=== PATIENT | female | born 1965 | race Caucasian/White ===

== ENCOUNTER 2017-03-01 06:02 | Observation (INO) | payer MEDICAID, OTHER ==
[2017-02-28 11:21] VITALS: BMI 36.1
--- NOTE | 2017-02-28 21:27 | PREOPHP ---
DATE OF ADMISSION: 03/01/2017 REASON FOR ADMISSION: This 52-year-old patient is going to be admitted for diagnostic arthroscopy o f right shoulder, examination under general anesthesia, total synovectomy, SLAP and Bankart repair, plus acromioplasty of right shoulder. HISTORY OF PRESENT ILLNESS: This patient has been experiencing right shoulder pain for quite a whil e. Conservative treatment resulted in limited benefit to the patient. The patient has requested matias rgical intervention. PAST MEDICAL HISTORY: Asthma, COPD, coronary artery disease, and high blood pressure. SOCIAL HISTORY: Nonsmoker, nondrinker. ALLERGIES: ALLERGIC TO TYLENOL. MEDICATIONS: 1. Tramadol. 2. Hydrochlorothiazide. 3. Singulair. 4. Dulera. 5. Ventolin. 6. Robaxin. 7. Clinoril. 8. B6. 9. B12. 10. Folic acid. 11. D3. REVIEW OF SYSTEMS: Limited to present illness. PHYSICAL EXAMINATION: VITAL SIGNS: Height of 5 feet 9 inches, weighing 230 pounds. SKIN: Within normal limits. EYES: PERRLA. HEAD AND NECK: Normocephalic. Trachea midline. Bilateral symmetrical carotid pulses. No mass, no bruit, no lymphadenopathy. CARDIOVASCULAR: Normal sinus rhythm. S1, S2 normal. No murmur. No JVD. No peripheral edema. LUNGS: Clear. ABDOMEN: Soft, slightly protuberant. No organomegaly. No mass. Bowel sounds present. GENITOURINARY AND RECTAL: Not done, not pertinent to this admission. MUSCULOSKELETAL: The patient states that she used to be 400 pounds, now 230 pounds. Cervical spine is within normal limits. The shoulder, elbow, wrist, and hands are normal. The right shoulder has limited range of motion only to 50%. There is tenderness in the anterior glenohumeral joint, subac romial space. Positive impingement sign. Positive Dickey test. Decreased tenderness ____ symmetr ical to the other side. The spine is clear. Both lower extremities symmetrical and normal, except tenderness in the right and left iliotibial bands. Right leg is externally rotated. The right knee has limited range of motion to 15 degrees, no more. Slight valgus. Synovitis and tenderness in al l joints present. There is considerable amount of weakness in the hip flexor, 3/5. Also the flexor and extensor. There is decrease ____ and decreased tone and reflex. DIAGNOSES: 1. Iliotibial band syndrome. 2. Right greater trochanteric bursitis. 3. Right shoulder synovitis with right shoulder superior labral anterior-posterior lesion, possible Bankart lesion. 4. Radicular pain and weakness in the lower extremity. 5. Bilateral knee synovitis, internal derangement. PLAN: Treatment plan, alternatives, risks, and benefits discussed. The patient understands possibi lity of complications such as infection, bleeding, nerve damage, vascular damage, possibility of fabiano p venous thrombosis, pulmonary embolism, hypersensitivity from medication, and even . [facility] re sult may not be obtained depending on actual finding or known or unknown factor or factors. Formal H and P is supposed to be done by PCP. Dictated By: HEATHER CLARK/LEATHA Conf#: [id number] DID#: [id number]
[~2017-03-01] VITALS: Ht 170.2 cm; Wt 106.7 kg
[2017-03-01] VITALS (55 sets, daily range): BP systolic 110–212; BP diastolic 51–108; PULSE 61–96; RESP 16–26; Ht 170.2 cm; Wt 106.7 kg
[2017-03-01] MEDS ORDERED: OMEP20CA16 PO (06:57)
[2017-03-01] MEDS ORDERED: ALBU18HF INHALATION (06:57)
[2017-03-01] MEDS ORDERED: AMLO2.5T2 PO (06:57)
[2017-03-01] MEDS ORDERED: TIOT4MIS5 IH (06:57)
[2017-03-01] MEDS ORDERED: ALBU8.5H3 INH (06:57)
[2017-03-01] MEDS ORDERED: SULI150T39 PO (06:57)
[2017-03-01] MEDS ORDERED: ASPI81TA3 PO (06:57)
[2017-03-01] MEDS ORDERED: HYDR50TA3 PO (06:57)
[2017-03-01] MEDS ORDERED: MOME13HF2 INHALATION (06:57)
[2017-03-01] MEDS ORDERED: morphine SULFATE/PF (10 MG/10 ML) INJ ONE (06:58)
[2017-03-01] MEDS ORDERED: EPINEPHrine 1 MG/ML 30 ML INJ ONE (06:59)
[2017-03-01] MEDS ORDERED: CITRIC ACID/NA CITRATE 30 ML CUP ONE (07:24)
[2017-03-01] MEDS ORDERED: ROCURONIUM 50 MG INJ ONE (07:41)
[2017-03-01] MEDS ORDERED: GLYCOPYRROLATE 0.4 MG INJ ONE (07:41)
[2017-03-01] MEDS ORDERED: NEOSTIGMINE 3 MG/3 ML SYRINGE ONE (07:42)
[2017-03-01] MEDS ORDERED: CEFAZOLIN 1 GM INJ ONE (07:42)
[2017-03-01] MEDS ORDERED: PROPOFOL 20 ML ONE (07:42)
[2017-03-01] MEDS ORDERED: DEXAMETHASONE 4 MG/ML 1 ML INJ ONE (07:43)
[2017-03-01] MEDS ORDERED: ONDANSETRON 4 MG INJ ONE (07:43)
[2017-03-01] MEDS ORDERED: MIDAZOLAM 1 MG/ML 2 ML INJ ONE (07:43)
[2017-03-01] MEDS ORDERED: FENTAnyl 50 MCG/ML VIAL ONE (07:43)
[2017-03-01] MEDS ORDERED: ROPIVACAINE 0.5 % 30 ML VIAL ONE (07:43)
[2017-03-01] MEDS ORDERED: ALBUTEROL 0.5% (NEB) 2.5 MG/0.5 ML AMP ONE ×2 (07:55→10:58)
[2017-03-01] MEDS ORDERED: ALBUTEROL 0.083% (NEB) 2.5 MG/3 ML AMP ONE (07:56)
[2017-03-01] MEDS ORDERED: PANTOPRAZOLE 40 MG INJ IV ONE (08:00)
[2017-03-01] MEDS ORDERED: hydrALAzine 20 MG INJ ONE (08:37)
[2017-03-01] MEDS ORDERED: TRIMETHOBENZAMIDE 100 MG/ML VIAL IM PRN (09:00)
[2017-03-01] MEDS ORDERED: DIPHENHYDRAMINE 50 MG INJ IV PRN (09:00)
[2017-03-01] MEDS ORDERED: LABETALOL HCL 20MG INJ IV PRN (09:00)
[2017-03-01] MEDS ORDERED: hydrALAzine 20 MG INJ IV PRN (09:00)
[2017-03-01] MEDS ORDERED: FENTAnyl 50 MCG/ML VIAL IV PRN ×3 (09:00)
[2017-03-01] MEDS ORDERED: MEPERIDINE 25 MG INJ IV PRN (09:00)
[2017-03-01] MEDS ORDERED: HYDROmorphONE (0.2 MG/ML) 10ML SYG IV PRN ×3 (09:00)
[2017-03-01] MEDS ORDERED: ONDANSETRON 4 MG INJ IV PRN (09:00)
[2017-03-01] MEDS ORDERED: MIDAZOLAM 1 MG/ML 2 ML INJ IV PRN (09:00)
[2017-03-01] MEDS ORDERED: EPHEDrine SULFATE 50 MG/5 ML SYG IV PRN (09:00)
[2017-03-01] MEDS ORDERED: morphine SULFATE/PF (10 MG/10 ML) INJ EPI ONE (11:06)
[2017-03-01] MEDS ORDERED: EPINEPHrine 1 MG/ML 30 ML INJ IRR ONE (11:06)
[2017-03-01] MEDS: traMADol 50 MG TAB PO SCH ×2 (11:30→21:15)
--- NOTE | 2017-03-01 13:03 | OPR ---
DATE OF OPERATION: 03/01/2017 PREOPERATIVE DIAGNOSES: 1. Superior labral tear from anterior to posterior lesion. 2. Bankart lesion of the right shoulder. POSTOPERATIVE DIAGNOSES: 1. Bankart lesion 2. Superior labral tear from anterior to posterior lesion. 3. 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 PROCEDURE: Difficult glenohumeral entry, use of C-arm for 30 minutes; diagnostic arthroscopy; rhondai rebecca under general anesthesia; SLAP repair, Bankart repair of right shoulder. ANESTHESIA: General and shoulder block. ANESTHESIOLOGIST: ____ BLEEDING: Minimal. COMPLICATIONS: None. OPERATIVE PROCEDURE: The patient was transferred to the operating room and placed on the operating table in supine position and a shoulder block was given to the right shoulder. General anesthesia w as induced. Two grams of Ancef was given IV. The patient was put in left decubitus position. Axil gerald roll applied. Bony areas were padded. Neck was flexed right laterally to prevent brachial ple xus pull during the procedure. We used Arthrex shoulder hankins during this procedure. Total of 10 pounds on subacromial space, a total of 10 pounds on glenohumeral joint. After regular prepping and draping, landmarks were marked and through posterior portal we tried to e nter it and have access to the glenohumeral joint. We did not succeed and therefore, we called the C-arm and under C-arm control, we entered the glenohumeral joint. We noticed on the C-arm control, there was a large space in subacromial space, very unusual. There was subluxation of the humerus i n the glenoid and therefore, under C-arm control seated the anterior and glenohumeral joint. ____Ch ronic synovitis of the right shoulder joint which was noticed and there was type 3 SLAP lesion pres ent. The subscapularis was intact. Rotator cuff was intact. There was DJD of glenohumeral joint, more on the humeral head than the glenoid. 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 Rot ator cuff was intact. Anterior and lateral portal was established using 8.5 cannula, and the total synovectomy was done with Arthrocare coagulation and then examination under general anesthesia indic ated almost 60% anterior instability of the humeral head on the glenoid. After a total synovectomy, we used a suture lasso, FiberStick and PushLock to repair the lesion on the bleeding surface. Stab le fixation was obtained, and this reduced the shoulder instability substantially. Then the capsula r redundancy was pulled up and then the PushLock was stabilized at the 1 o'clock position and on a b leeding surface. There was almost no labrum in the superior third of the acromion which was all shr edded and in pieces. Three sutures were cut and the shoulder joint was evacuated from debris with c opious amount of saline irrigation. Portal was closed with benzoin and Steri-Strips and 10 mg Duram orph mixed with 10 mL of injectable saline was injected into the shoulder. Sterile dressing was yolis lied and a shoulder immobilizer that came in from the company was the wrong one, and then the [facility] provided the correct shoulder immobilizer, which was applied. General anesthesia was stopped. P wali was taken to recovery room in good and stable condition. Dictated By: HEATHER CLARK/LEATHA Conf#: [id number] DID#: [id number]
[2017-03-01] MEDS: AMLODIPINE 2.5 MG TAB PO SCH (16:30)
[2017-03-01] MEDS ORDERED: traMADol 50 MG TAB PO PRN (16:30)
[2017-03-01] MEDS: ALBUTEROL 18 GM INHALER INH SCH ×2 (16:30→20:00)
[2017-03-01] MEDS: ONDANSETRON 4 MG INJ IV PRN (17:28)
--- NOTE | 2017-03-01 20:53 | HP ---
DATE OF ADMISSION: 03/01/2017 Thank you, Dr. Minaya, for this consultation. HISTORY OF PRESENT ILLNESS: This is a 52-year-old lady with a history of COPD, coronary artery dise ase, hypertension, who came in for elective arthroscopy of right shoulder for significant ongoing ri ght shoulder pain. The patient underwent unremarkable arthroscopy, was found to have a Bankart les ion and superior labral tear. Repair of this lesion was performed under general and shoulder block. Postoperatively, the patient remains somnolent and drowsy and not stable for discharge home. OUTPATIENT MEDICATIONS: Include: 1. Spiriva 1 tablet daily. 2. Dulera 2 puffs daily. 3. Aspirin 81 mg daily. 4. Albuterol inhaler. 5. Amlodipine 2.5 mg p.o. daily. 6. Hydrochlorothiazide 50 mg p.o. daily. 7. Omeprazole 20 mg p.o. daily. ALLERGIES: NONE. SOCIAL HISTORY: None. The patient is an ex-smoker, no alcohol, no history of drug use. FAMILY HISTORY: Noncontributory. SYSTEMS REVIEW: A 14-point review of systems was negative other than that mentioned above. PHYSICAL EXAMINATION: GENERAL: Morbidly obese lady, comfortable at rest, no acute distress. VITAL SIGNS: Currently afebrile, pulse is 70, blood pressure 147/90, O2 saturation 96% on 3 L nasal cannula. NECK: Supple. No JVD or lymphadenopathy. CARDIAC: S1, S2, no added sounds or murmurs. CHEST: Diminished air entry bilaterally. ABDOMEN: Soft, nontender. No guarding or rebound. EXTREMITIES: No cyanosis, clubbing, or edema. NEUROLOGIC: Grossly intact. No focal deficits. IMPRESSION AND PLAN: 1. Right shoulder trochanteric bursitis. 2. Synovitis. 3. Status post Bankart repair of shoulder. 4. History of hypertension. 5. History of chronic obstructive pulmonary disease. The patient will require: 1. Continued pain management. 2. Continue aspiration precautions. 3. Continue antihypertensives. 4. Continue inhalers. I anticipate discharge tomorrow if patient more alert and comfortable. Dictated By: EDIE JACOBS/LEATHA Conf#: [id number] DID#: [id number]
[2017-03-01] MEDS: SALMETEROL/FLUTICASONE 250/50 INHA INH SCH (21:16)
[2017-03-02] VITALS: BP 109/58; RESP 20
[2017-03-02] MEDS: SULINDAC 150 MG TAB PO SCH ×2 (00:21→09:03)
[2017-03-02] MEDS: ALBUTEROL 18 GM INHALER INH SCH ×3 (00:35→14:00)
[2017-03-02 05:30] VITALS: BP 126/60; PULSE 76; RESP 18
[2017-03-02] MEDS ORDERED: PANTOPRAZOLE (EC) 40 MG TAB PO SCH (06:00)
[2017-03-02] MEDS ORDERED: METHOCARBAMOL 500 MG TAB PO ONE (06:30)
[2017-03-02] MEDS: ONDANSETRON 4 MG INJ IV PRN (06:37)
[2017-03-02 08:41] VITALS: BP 140/66; RESP 18
[2017-03-02] MEDS: SALMETEROL/FLUTICASONE 250/50 INHA INH SCH (08:59)
[2017-03-02] MEDS ORDERED: HYDROCHLOROTHIAZIDE 50 MG TAB PO SCH (09:00)
[2017-03-02] MEDS ORDERED: TIOTROPIUM 18 MCG CAPSULE INHA DEV INH SCH (09:00)
[2017-03-02] MEDS ORDERED: ASPIRIN 81 MG TAB PO SCH (09:00)
[2017-03-02] MEDS: traMADol 50 MG TAB PO SCH (09:00)
[2017-03-02] MEDS ORDERED: HYDROCHLOROTHIAZIDE 25 MG TAB PO SCH (09:00)
[2017-03-02] MEDS: AMLODIPINE 2.5 MG TAB PO SCH (09:04)
--- NOTE | 2017-03-02 10:11 | RADRPT ---
PROCEDURE: Intraoperative imaging of the right shoulder with fluoroscopy. CLINICAL INDICATION: Right shoulder pain. Intraoperative. TECHNIQUE: 6 images of the right shoulder were obtained in the operating room with an image intens ifier. No radiologist was in attendance. 21.9 seconds of fluoroscopy time was used. COMPARISON: No prior study is available for comparison. FINDINGS: Images demonstrate surgical instruments overlying the right shoulder. IMPRESSION: 1. Intraoperative imaging of the right shoulder. RPTAT: QQ .Yasir Currie MD, MD Date Time Electronically viewed and signed by .Yasir Currie MD, MD on 03/02/2017 10:11 .R/
--- NOTE | 2017-03-02 13:32 | PDOCDIS ---
Discharge Instructions CONDITION Patient Condition: Stable HOME CARE INSTRUCTIONS: Special Diet: REGULAR ACTIVITY: Activity Restrictions: Slowly Increase Activity FOLLOW UP/APPOINTMENTS Appointments f/u pcp [address] zavala 1 wk JO ANN DE JESUS MD March 02, 2017 13:32
--- NOTE | 2017-03-02 13:33 | PDOCDIS ---
Discharge Instructions CONDITION Patient Condition: Stable HOME CARE INSTRUCTIONS: Special Diet: REGULAR ACTIVITY: Activity Restrictions: Slowly Increase Activity FOLLOW UP/APPOINTMENTS Appointments f/u ortho and pcp 1 wk JO ANN DE JESUS MD March 02, 2017 13:33
[2017-03-02] MEDS ORDERED: TRAM50TA2 PO (13:34)
--- NOTE | 2017-03-02 16:13 | QN ---
Documentation Comment [id number] summary JO ANN DE JESUS MD March 02, 2017 16:13
--- NOTE | 2017-03-02 16:52 | DS ---
DATE OF ADMISSION: 03/01/2017 DATE OF DISCHARGE: 03/02/2017 Ivonne Vides is a 52-year-old female was admitted with COPD, CAD and hypertension. She underwent elective arthroscopy of the right shoulder. The patient received pain medication. Shoulder x-ray done shows intraoperative labral tear of the right shoulder. The patient was cleared by Dr. Adriane castillo and discharged home. DISCHARGE DIAGNOSES: Include: 1. Superior labral tear of the anterior to posterior lesions. Instability and chronic synovitis of the right shoulder. 2. Bankart lesion of the right shoulder. The patient underwent Bankart repair of the right shoulde r. POSTOPERATIVE MEDICATION: To continue. Continue on tramadol, albuterol, aspirin, amlodipine, hydro chlorothiazide, Dulera, omeprazole, sulindac and Spiriva. The patient to follow with his PCP and Dr. Minaya. Dictated By: JO ANN DE JESUS MD BS/NTS Conf#: [id number] DID#: [id number]
== END 2017-03-02 15:33 | disposition home or self-care (01) ==
LOC: SDS 06:02 → MS1 16:15
PROVIDERS: ADMIT Internal Medicine Endocrinology, Diabetes & Metabolism; ATTEND Internal Medicine Endocrinology, Diabetes & Metabolism
DX: S43.431A Superior glenoid labrum lesion of right shoulder, initial encounter (principal); M24.411 Recurrent dislocation, right shoulder; M25.311 Other instability, right shoulder; M65.811 Other synovitis and tenosynovitis, right shoulder; R53.1 Weakness; M76.31 Iliotibial band syndrome, right leg; M75.51 Bursitis of right shoulder; M65.9 Synovitis and tenosynovitis, unspecified; M24.9 Joint derangement, unspecified; J45.909 Unspecified asthma, uncomplicated; I10 Essential (primary) hypertension; J44.9 Chronic obstructive pulmonary disease, unspecified; I25.10 Atherosclerotic heart disease of native coronary artery without angina pectoris; Z88.6 Allergy status to analgesic agent; Z88.0 Allergy status to penicillin; Z79.82 Long term (current) use of aspirin; X58.XXXA Exposure to other specified factors, initial encounter; Y93.9 Activity, unspecified; Y99.9 Unspecified external cause status; Y92.9 Unspecified place or not applicable
CPT/HCPCS: 29806; 29807; 73030; 94664; 96374; C1713; J0171; J0360; J0690; J1100; J2175; J2250; J2274; J2405; J2710; J2795; J3010; Z7500; Z7512; Z7610; C9113; G0378